=== PATIENT | female | born 1955 | race Caucasian/White ===

== ENCOUNTER 2023-12-12 12:47 | Emergency (ER) | payer MEDICARE ==
[~2023-12-12] VITALS: Ht 167.6 cm; Wt 81.4 kg
[2023-12-12 12:51] VITALS: TEMP 97.6
[2023-12-12] MEDS ORDERED: Ondansetron 4 MG/2 ML VIAL IV PRN (13:30)
[2023-12-12] MEDS ORDERED: Morphine 4 MG/ML VIAL IV ONE (13:30)
[2023-12-12] MEDS ORDERED: NS 1,000 ML IV ONE (13:30)
[2023-12-12 13:44] LABS: BASO # 0.1 K/mm3 (0.0-0.2); BASO % 0.6 % (0.0-2.0); EOS # 0.3 K/mm3 (0.0-0.7); EOS % 2.5 % (0.0-4.0); GRAN # 6.9 K/mm3 (1.4-6.5); GRAN % 69.4 % (42.2-75.2); HEMOGLOBIN 12.4 g/dl (12.5-16.0); LYMPH # 1.8 K/mm3 (1.2-3.4); LYMPH % 17.9 % (20.0-51.0); MEAN CELL VOLUME 86 fl (80.0-100.0); MEAN CORPUSCULAR HEMOGLOBIN 29 pg (27-31); MEAN CORPUSCULAR HGB CONC 34 g/dl (33.0-37.0); MONO # 0.9 K/mm3 (0.1-0.6); MONO % 9.2 % (1.7-9.3); PLATELET COUNT 317 K/mm3 (130-400); RED BLOOD COUNT 4.29 M/mm3 (4.10-5.30); REDCELL DISTRIBUTION WIDTH-CV 14.9 % (11.5-14.5)
[2023-12-12 14:13] LABS: URINE APPEARANCE CLEAR (CLEAR/HAZY); URINE BLOOD NEGATIVE (NEGATIVE); URINE COLOR YELLOW (YELLOW); URINE GLUCOSE NEGATIVE (NEGATIVE); URINE KETONE TRACE (NEGATIVE); URINE NITRATE POSITIVE (NEGATIVE); URINE PROTEIN(semi-quant) 1+ (NEGATIVE)
[2023-12-12 14:20] LABS: COLLECTION METHOD CLEAN CATCH
[2023-12-12 14:23] LABS: ALBUMIN 3.8 g/dL (3.4-4.8); ALKALINE PHOSPHATASE 81 U/L (40-150); ANION GAP 13 mmol/L (7-16); AST,SGOT 8 U/L (5-34); BILIRUBIN,TOTAL 0.3 mg/dL (0.2-1.2); BLOOD UREA NITROGEN 19 mg/dL (10-20); CHLORIDE 99 mEq/L (98-107); CREATININE, serum 1.05 mg/dL (0.57-1.11); GLUCOSE 101 mg/dL (70-99); LIPASE 34 U/L (8-78); SODIUM 140 mEq/L (136-145); TOTAL PROTEIN 7.3 g/dl (6.2-8.1)
[2023-12-12 14:28] LABS: ALANINE AMINOTRANSFERASE < 6 U/L (0-55); POTASSIUM 2.9 mEq/L (3.5-4.5)
[2023-12-12] MEDS ORDERED: Iohexol 300 - 100 ML VIAL IV ONE (14:47)
[2023-12-12] MEDS ORDERED: NS 100 ML IV SCH (14:48)
[2023-12-12] MEDS ORDERED: Ciprofloxacin 500 MG TAB PO ONE (15:00)
[2023-12-12] MEDS ORDERED: KLOR-CON20 MEQ PO (15:21)
[2023-12-12] MEDS ORDERED: CIPRO 500MG TA500 MG PO (15:21)
[2023-12-12 15:25] VITALS: BP 111/53; PULSE 70
== END 2023-12-12 15:40 | disposition home or self-care (01) ==
LOC: COL.ER 12:47
PROVIDERS: Personal Emergency Response Attendant
DX: N39.0 Urinary tract infection, site not specified (principal); R19.7 Diarrhea, unspecified; E87.6 Hypokalemia; Z88.2 Allergy status to sulfonamides; Z88.1 Allergy status to other antibiotic agents
CPT/HCPCS: J2270; J2405; J7030; Q9967